=== PATIENT | female | born 1955 | race Caucasian/White ===

== ENCOUNTER → 2020-04-03 | Outpatient (CLI) | payer MEDICARE | LOC: HEART 5 12:05 | DX: J45.50 Severe persistent asthma, uncomplicated (principal); R94.2 Abnormal results of pulmonary function studies | CPT/HCPCS: 94010; 95012 ==

== ENCOUNTER → 2020-07-11 | Outpatient (CLI) | payer MEDICARE | LOC: HEART 5 16:20 | DX: J45.40 Moderate persistent asthma, uncomplicated (principal) | CPT/HCPCS: 82785; 85025; 94060; 95012 ==

== ENCOUNTER → 2021-05-07 | Outpatient (CLI) | payer MEDICARE | LOC: HEART 5 15:07 | DX: J45.40 Moderate persistent asthma, uncomplicated (principal); J30.9 Allergic rhinitis, unspecified | CPT/HCPCS: 94060; 95012 ==

== ENCOUNTER → 2021-09-26 | Outpatient (CLI) | payer MEDICARE ==
[~2021-09-26] VITALS: Ht 162.6 cm; Wt 72.6 kg
== END ==
LOC: EROP 13:13
DX: U07.1 COVID-19 (principal)
CPT/HCPCS: M0222; Q0222